=== PATIENT | female | born 1960 | race Caucasian/White ===

== ENCOUNTER → 2023-06-02 07:41 | Outpatient (REF) | payer BC, SELFPAY | LOC: HWRAD 07:41 | PROVIDERS: ATTENDING PHYSICIAN Specialist; FAMILY PHYSICIAN Internal Medicine | DX: N95.0 Postmenopausal bleeding (principal); N85.00 Endometrial hyperplasia, unspecified | CPT/HCPCS: 76830; 76856 ==

== ENCOUNTER → 2023-11-09 07:41 | Outpatient (REF) | payer BC, SELFPAY | LOC: HWRAD 07:41 | PROVIDERS: ATTENDING PHYSICIAN Specialist; FAMILY PHYSICIAN Internal Medicine | DX: N83.291 Other ovarian cyst, right side (principal) | CPT/HCPCS: 76830; 76856 ==

== ENCOUNTER → 2024-01-09 08:44 | Outpatient (REF) | payer BC, SELFPAY ==
[2024-01-09 10:07] LABS: Blood Urea Nitrogen 18 mg/dl (7-17); Carbon Dioxide 25 mmol/L (22-30); Chloride 106 mmol/L (98-107); Glucose 89 mg/dl (70-99); Potassium 4.4 mmol/L (3.5-5.1); Sodium 142 mmol/L (135-145); eGFR > 60.00
== END ==
LOC: REG 08:44
PROVIDERS: ATTENDING PHYSICIAN Obstetrics & Gynecology; FAMILY PHYSICIAN Internal Medicine
DX: D49.4 Neoplasm of unspecified behavior of bladder (principal)
CPT/HCPCS: 36415; 80048

== ENCOUNTER → 2024-01-15 08:20 | Outpatient (REF) | payer BC, SELFPAY | LOC: RAD 08:20 | PROVIDERS: ATTENDING PHYSICIAN Obstetrics & Gynecology; FAMILY PHYSICIAN Internal Medicine | DX: D49.4 Neoplasm of unspecified behavior of bladder (principal) | CPT/HCPCS: 74178; Q9967 ==

== ENCOUNTER → 2024-01-18 16:04 | Outpatient (REF) | payer BC, SELFPAY | LOC: WDC 16:04 | PROVIDERS: ATTENDING PHYSICIAN Specialist; FAMILY PHYSICIAN Internal Medicine | DX: Z12.31 Encounter for screening mammogram for malignant neoplasm of breast (principal) | CPT/HCPCS: 77063; 77067 ==

== ENCOUNTER → 2024-02-22 12:05 | Outpatient (REF) | payer BC, SELFPAY | LOC: CLAB 12:05 | PROVIDERS: ATTENDING PHYSICIAN Surgery | DX: D49.4 Neoplasm of unspecified behavior of bladder (principal) | CPT/HCPCS: 88112 ==

== ENCOUNTER → 2024-04-06 13:08 | Outpatient (REF) | payer BC, SELFPAY | LOC: PAVMRI 13:08 | PROVIDERS: ATTENDING PHYSICIAN Surgery; FAMILY PHYSICIAN Internal Medicine | DX: D49.4 Neoplasm of unspecified behavior of bladder (principal) | CPT/HCPCS: 72197; A9575 ==

== ENCOUNTER 2024-06-05 12:14 | Emergency (ER) | payer BC, SELFPAY ==
[2024-06-05 12:20] VITALS: BP 92/74
[2024-06-05 12:22] VITALS: BP 92/74
[2024-06-05 12:26] VITALS: BMI 36.4
--- NOTE | 2024-06-05 12:29 | ED.GENMED ---
History of Present Illness
General
Chief Complaint: Fainting/Passed Out
Source: patient and ambulance crew
Exam Limitations: none
Time Seen by Provider: 06/05/24 12:29
Nursing documentation reviewed up to this point in time: agreed with
History of Present Illness
History of Present Illness:
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 Bystanders saw her and she was only out for a few seconds. She did eat breakfast this morning.
Presents via EMS actively vomiting. She denies chest pain or breathing. She has 'a little sore' neck pain. She states she has a mild headache.
Past History
Past History
ED Past Medical History: Other (Fainting episodes); Negative Arrthythmia, HTN, Hypercholesterolemia or NIDDM
ED Past Surgical History: Cholecystectomy
Social History
Tobacco: Non-smoker
Alcohol: None
Personal:
Living: with family
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
Family History
Family History: Negative CAD
Review of Systems
Review of Systems
Allergies reviewed?: Yes
All Other Systems: ROS reviewed and negative except as documented in HPI and ROS
Constitutional: Denies fever or fatigue
EENT: Denies sore throat
Respiratory: Denies trouble breathing
Cardiac: Reports diaphoresis and syncope; Denies chest pain or palpitations
ABD/GI: Reports nausea and vomiting; Denies abdominal pain or diarrhea
: Denies dysuria, frequency or difficulty voiding
Musculoskeletal: Reports no symptoms
Skin: Reports no symptoms
Neurological: Reports no symptoms
Phy Exam
Physical Exam
Physical Exam:
GENERAL: Vomiting, A&Ox3.
CONSTITUTIONAL: Afebrile.
EYES: clear, conjunctivae normal
ENMT: moist mucus membranes, Pharynx nl
RESPIRATORY: Regular respirations, nonlabored, lungs clear.
CARDIOVASCULAR: Regular rate and rhythm, no murmurs, no rubs.
GI: Soft, nontender, normal BS
MUSCULOSKELETAL: Tender mid cervical spine. Moves with ease. Well perfused.
SKIN: Warm, dry, pink
PSYCH: Normal mood and affect. Well kept, interactive and appropriate
NEUROLOGIC: Awake, alert and oriented. CN 2-12 intact. No focal neurological deficits
Course
Orders/Labs/Results
Orders:
Orders
06/05/24 12:18
Electrocardiogram (*1) Urgent
Reason for Study: Syncope
06/05/24 12:19
EKG- Treatment ONCE
06/05/24 12:24
Complete Blood Count/With Diff Urgent
06/05/24 12:30
Ondansetron Injectable [Zofran] 4 mg .ROUTE .STK-MED ONE
Ondansetron Injectable [Zofran] 4 mg IV NOW STA
06/05/24 12:38
COVID-19 Antigen Urgent
Source: Nasal Swab
Comprehensive Metabolic Panel Urgent
Lipase Urgent
Comment: ADD ON
Influenza A+B Rapid Molecular Urgent
BRET Source: Nasal Swab
Specimen Description:
06/05/24 13:11
Add On- LAB Urgent
Tests Added?: Lipase
06/05/24 13:18
0.9% Sodium Chloride 250 ml [Nss] 250 ml IV BOLUS
06/05/24 13:22
CT Cervical Spine W/o Iv Contr Urgent
Comment:
Reason For Exam: pain mid cspine after fall
CT Head W/o Iv Contrast Urgent
Comment:
Reason For Exam: fall, struck back of head, vomiting
Abnormal Lab Results
06/05/24 06/05/24
12:24 12:38
MCH 31.3 H pg
(27.0-31.0)
Abs Immat Gran (auto) 0.1 H 10^3/uL
(0-0.05)
Absolute Monos (auto) 0.7 H 10^3/uL
(0.1-0.6)
Immature Gran % 0.6 H %
(0-0.5)
BUN 18 H mg/dl
(7-17)
Glucose 109 H mg/dl
(70-99)
06/05/24 12:24
06/05/24 12:38
Vital Signs
Initial and Last Documented VS:
Initial Vital Signs
Temp Pulse Resp BP Pulse Ox
97.9 F 58 24 92/74 100
06/05/24 12:20 06/05/24 12:20 06/05/24 12:20 06/05/24 12:20 06/05/24 12:20
Last Documented Vital Signs
Temp Pulse Resp BP Pulse Ox
97.9 F 58 18 150/88 90
06/05/24 12:20 06/05/24 17:10 06/05/24 17:10 06/05/24 17:10 06/05/24 14:00
MDM/Problems Addressed
Differential Diagnosis Includes:
Viral gastroenteritis, Covid, vasovagal episode
MDM/Problems Addressed:
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 She thinks she hit her head. Not anticoagulated. Bystanders saw her and she was only out for a few seconds.
She did eat breakfast this morning.
Presents via EMS actively vomiting. She denies chest pain or breathing. She has 'a little sore' neck pain. She states she has a mild headache. Denies numbness, weakness in extremities
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
EKG sinus bradycardia
No significant headache, neck non tender, no indication for imaging.
1:00 PM:
CBC normal
CMP normal
Covid neg
1:20 PM:
After Zofran, no longer vomiting. Still feels nauseous.
Will give IV fluids and reevaluate
In further conversation with the patient she states while she was standing, singing at [employer], with a history of 'bad knees,' she states her knees are very painful and 'really bothering me,' just prior to the fainting episode
This is consistent with vasovagal episode.
3:40 PM:
Head CT negative
C-spine CT negative
Patient has been out of bed and ambulating well, states she is feeling much better, denies nausea and has been drinking sofy pascual. Stable for discharge.
*EKG
EKG Intrepretation Date: 06/05/24
Interpretation: normal
Comparison EKG: no changes
Heart Rate: 54
Rate: bradycardiac
Rhythm: sinus
[place]: normal axis
Interval: normal interval
QRS Pattern: normal QRS
Ischemia: no ischemia
*Critical Care Note
Total Time (30-74mins, 75-104mins- exclusive of procedures): Not Applicable
ED Attending Note
-
Portions of this chart may have been created with voice recognition software.� Occasional wrong word or��sound alike� substitutions may have occurred due to the inherent limitations of voice recognition software.
Discharge Plan
Departure
Patient Disposition: Home (Routine Discharge)
Date of Disposition: 06/05/24
Time of Disposition: 15:59
Patient with high blood pressure during this ER visit?: No
Condition: Good
Discharge Problem:
Fainting spell, Vasovagal episode
Instructions: Syncope (fainting), Vasovagal Response (DC)
Prescriptions:
No Action
fluticasone propionate 1 SPRAY spray,suspension
2 spray intranasal DAILY Qty: 1 0RF
Rx Instructions:
2 sprays each nostril once daily
Centrum Silver Tablet
1 tab PO DAILY
Vitamin D3 100 mcg (4,000 unit) Capsule
1,000 unit PO DAILY
Referrals:
Donny Goncalves MD [Family Provider] - As needed
Activity Restrictions/Additional Instructions:
As we discussed, nothing worrisome in your workup here today.
You most likely had a vasovagal reaction to your knee pain and feeling hot.
Interventions
Interventions:
*Risk Screen - Suicide Last Done: 06/05/24 12:19
*General Assessment Last Done: 06/05/24 12:20
*Neglect/Abuse Screening Last Done: 06/05/24 12:19
ED- Fall Risk Assessment Last Done: 06/05/24 12:37
*ED COVID-19 Vaccine History Last Done: 06/05/24 12:20
*Nursing Disposition Last Done: 06/05/24 17:10
ED- Cardiac Assessment Last Done: 06/05/24 12:48
ED- Neurological Assessment Last Done: 06/05/24 12:48
Discharge Date and Time
Discharge Date/Time: 06/05/24 16:45
Print Language: BURKINAN
[2024-06-05 12:31] LABS: % Basophils 0.7 % (0-2); % Eosinophils 0.9 % (0-6); % Immature Granulocytes 0.6 % (0-0.5); % Lymphocytes 25.1 % (20.5-51.1); % Monocytes 8.3 % (1.7-9.3); % Neutrophils 64.4 % (42.2-75.2); Absolute Basophils 0.1 10^3/uL (0-0.2); Absolute Eosinophils 0.1 10^3/uL (0-0.7); Absolute Immature Granulocytes 0.1 10^3/uL (0-0.05); Absolute Lymphocytes 2.1 10^3/uL (1.2-3.4); Absolute Monocytes 0.7 10^3/uL (0.1-0.6); Absolute Neutrophils 5.3 10^3/uL (1.4-6.5); Hematocrit 38.8 % (37.0-47.0); Hemoglobin 13.2 g/dL (12.0-16.0); Mean Corpuscular Hgb 31.3 pg (27.0-31.0); Mean Corpuscular Volume 91.9 fL (81.0-99.0); Mean Platelet Volume 9.9 fL (7.4-10.4); Nucleated Red Blood Cells % 0 %; Platelet Count 262 10^3/uL (130-400); Red Blood Cell Count 4.22 10^6/uL (4.20-5.40); Red Cell Dist. Width 13.1 % (11.5-14.5); White Blood Cell Count 8.2 10^3/uL (4.8-10.8)
[2024-06-05] MEDS: ZOFRAN 4 MG IV (12:32)
[2024-06-05 13:01] VITALS: BP 152/67
[2024-06-05 13:04] LABS: ALT (SGPT) 34 U/L (0-35); AST (SGOT) 35 U/L (14-36); Albumin 4.1 g/dl (3.5-5.0); Alkaline Phosphatase 100 U/L (38-126); Blood Urea Nitrogen 18 mg/dl (7-17); COVID-19 Antigen Negative (Negative); Calcium 9.9 mg/dl (8.4-10.2); Carbon Dioxide 24 mmol/L (22-30); Chloride 106 mmol/L (98-107); Estimated Creatinine Clearance 85 ml/min; Glucose 109 mg/dl (70-99); Sodium 138 mmol/L (135-145); Total Protein 6.9 g/dl (6.3-8.2); eGFR > 60.00
[2024-06-05] MEDS: NSS 250 IV (13:31)
[2024-06-05 14:00] VITALS: BP 160/65
[2024-06-05 14:09] LABS: Lipase 71 U/L (23-300)
--- NOTE | 2024-06-05 17:09 | EDRN ---
Reviewed discharge instructions with pateint. Verbalized understanding. Ambulated with steady gait to the lobby.
[2024-06-05 17:10] VITALS: BP 150/88
== END 2024-06-05 16:45 | disposition home or self-care (01) ==
LOC: EMR 12:14
PROVIDERS: Registered Nurse; EMERGENCY PHYSICIAN Student in an Organized Health Care Education/Training Program; FAMILY PHYSICIAN Internal Medicine
DX: R55 Syncope and collapse (principal); Z90.49 Acquired absence of other specified parts of digestive tract
CPT/HCPCS: 99284; 96374; 70450; 72125; 80053; 83690; 85025; 87502; 87811; 93005

== ENCOUNTER → 2024-06-17 08:02 | Outpatient (REF) | payer BC, SELFPAY | LOC: HWRCS 08:02 | PROVIDERS: ATTENDING PHYSICIAN Internal Medicine | DX: R55 Syncope and collapse (principal) | CPT/HCPCS: 93306 ==

== ENCOUNTER → 2024-12-06 08:40 | Outpatient (REF) | payer BC, SELFPAY | LOC: HWRAD 08:40 | PROVIDERS: ATTENDING PHYSICIAN Internal Medicine | DX: R10.13 Epigastric pain (principal) | CPT/HCPCS: 76700 ==

== ENCOUNTER 2024-12-13 11:47 | Emergency (ER) | payer BC, SELFPAY ==
[2024-12-13 11:50] VITALS: BP 202/111
[2024-12-13 12:06] VITALS: BP 178/79
--- NOTE | 2024-12-13 12:20 | ED.GENMED ---
History of Present Illness
General
Chief Complaint: Blood Pressure Problem
Time Seen by Provider: 12/13/24 12:07
History of Present Illness
History of Present Illness:
PAST MEDICAL HISTORY AND REVIEW OF OLD RECORDS
- No significant past medical history. I reviewed records, the patient had a syncopal event this past May and at that time had a negative brain CT. More recently, she has been having some abdominal/chest discomfort and upper abdominal
ultrasound was unremarkable (status post cholecystectomy).
Note:
CHIEF COMPLAINT(S)
Ear pain, blurred vision, headache, high blood pressure.
HISTORY OF PRESENT ILLNESS
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 She describes the pain as severe, which prompted her visit to the emergency room after a consultation with her primary
care provider yielded no resolution. The patient also reports experiencing blurred vision and a severe headache upon waking. She relates a sensation of pressure in her ear, but an examination by her primary care physician noted no otologic
abnormalities. The patient also notes a history of neck pain for the last two to three days, which she describes as intermittent and muscular in nature, but has worsened recently.
She has a history of elevated blood pressure readings and mentions a blood pressure of 178/79 on this presentation. Previous medical evaluation explored conditions like pancreatitis or a peptic ulcer, for which she had been prescribed pantoprazole.
She denies any weakness or speech changes. The patient does report a history of blurred vision since experiencing a fall in May of the same year, during which she hit her head. Since that fall, she has had persistent visual disturbances.
PAST MEDICAL AND SURIGICAL HISTORY
Intermittent elevated blood pressure.
Recent evaluation for pancreatitis versus peptic ulcer.
SOCIAL DETERMINANTS AFFECTING HEALTH
According to the patient, there is a history of elevated blood pressure readings with occasional home monitoring also revealing high levels.
PHYSICAL EXAM
General: Alert, no acute distress.
Skin: Warm, dry.
Head: Normocephalic, atraumatic.
Neck: Supple, tender on palpation, trachea midline.
Eye, ears, nose, mouth, and throat: Oral mucosa moist. Visual acuity approximately 20/30 in each eye with mild interocular discrepancy; right eye noted as weaker. Tympanic membrane with normal reflex, no acute abnormalities visible.
Cardiovascular: Elevated blood pressure noted; normal peripheral perfusion, no edema.
Respiratory: Respirations are non-labored. Breath sounds clear.
Gastrointestinal: Abdomen nondistended. Nontender.
Back: Normal range of motion, normal alignment.
Musculoskeletal: Normal ROM, normal strength; noted tenderness at trapezius muscle area.
Neurological: Alert and oriented to person, place, time, and situation, No focal neurological deficit observed.
Psychiatric: Cooperative, appropriate mood & affect.
PROBLEM LIST
Acute Problems:
- Ear pain
- Blurred vision
- Severe headache
- Neck pain
- Elevated blood pressure
PLAN
- Administer a dose of Losartan to address acute hypertension.
- Perform blood work to evaluate biochemical markers.
- Conduct a CT scan of the brain to rule out any acute intracranial pathologies.
- Reevaluate and address the need for long-term blood pressure management based on todays findings and past readings.
DIFFERENTIAL DIAGNOSIS
The Differential Diagnosis includes, in no particular order and is not limited to:
- Hypertension
- Migraine headache
- Tension-type headache
- Cervical spine disorder
- Labyrinthitis
- Transient ischemic attack
- Intracranial hemorrhage or ischemic stroke
- Acute glaucoma
- Sinusitis
- Giant cell arteritis
RADIOLOGY
- CT head obtained.
EKG
- Sinus 68, nonspecific ST abnormality, no significant change from 06/05/2024
LABS
- CBC unremarkable, chemistries and troponin unremarkable
UPDATE
- The patient has a normal neurologic examination with NIHSS equals 0. She primarily complains of pain at the right ear but is also been having some discomfort in the left trapezius region and last week had some chest discomfort.
SUMMARY OF ENCOUNTER
The patient, a 64-year-old female, presented to the emergency department with complaints of ear pain, blurred vision, severe headache, and elevated blood pressure. The patients blood pressure was significantly high, and she was already experiencing
ongoing visual disturbances since a head injury earlier this year. In response to her elevated blood pressure, a dose of Losartan was administered to manage hypertension. A CT scan was performed to rule out intracranial pathologies, and the results
showed no alarming intracranial issues. Cardiac blood work, basic chemistry tests, and a complete blood count were conducted, all of which returned normal results. The decision was made to prescribe Losartan 50 mg daily to manage ongoing
hypertension. Official readings from the CT scan were awaited, but preliminary interpretation revealed no signs of a heart attack or major bleeding.
DISPOSITION
Discharge.
ASSESSMENT
The patient presented with symptoms likely linked to elevated blood pressure and possibly a cervical spine disorder. Blurred vision and headaches could relate to both her elevated blood pressure and potential residual effects from her past head
injury.
EMERGENCY TREATMENTS ADMINISTERED
Losartan was administered in the emergency department to manage acute hypertension.
PLAN
Administer Losartan 50 mg daily for blood pressure management. Await official CT scan reading to confirm no acute intracranial pathologies. Discharge with follow-up instructions for primary care or specialist consultation if necessary.
INDEPENDENT REVIEW OF LABS AND INTERPRETATION OF TESTS
- My independent review of the cardiac and chemistry blood work indicates all results were normal and do not suggest acute cardiac events.
- My independent interpretation of the CT scan shows no signs of bleeding or acute intracranial pathology.
PATIENT EDUCATION AND COUNSELING
The patient was educated on the importance of managing her blood pressure to reduce the risk of headaches and possible blurred vision. She was also advised that the official CT scan report is pending but preliminary findings are reassuring.
FOLLOW-UP INSTRUCTIONS
Please contact your primary care provider for ongoing management of hypertension and further investigation of symptoms, including a possible referral to a specialist for persistent symptoms.
MEDICATION RECONCILIATION
- Losartan 50 mg daily was prescribed for hypertension management.
MEDICAL DECISION MAKING
- Number and Complexity of Problems Addressed: Chronic conditions affecting care include hypertension and possible residual effects from a prior head trauma. Differential diagnosis includes hypertension, migraine headache, tension-type headache,
cervical spine disorder, labyrinthitis, transient ischemic attack, intracranial hemorrhage or ischemic stroke, acute glaucoma, sinusitis, and giant cell arteritis.
- Data:
Category 1:
- Basic chemistry tests, complete blood count, and cardiac blood work reviewed, with normal results.
- My independent CT scan interpretation shows no acute intracranial issues.
Category 3:
- Await consultation of radiologists official read on CT scan to confirm preliminary findings.
- Risk: Consideration of Admission/Observation: Escalation of care including admission/observation was considered given the complexity and risk of the patients presenting complaint, exam findings, and underlying comorbidities. However, ultimately, I
feel the patient is safe for outpatient management with close follow-up. Reasoning: Work-up is reassuring, does not reveal any acute life/organ-threatening processes, patients symptoms well controlled upon reevaluation, reexamination is reassuring,
vitals are stable, patient agreeable with discharge, reliable for follow-up.
DIAGNOSIS
- Hypertension (I10)
- Headache, unspecified (R51)
- Blurred vision (H53.8)
- Right ear pain
Past History
Past History
ED Past Medical History: Other (Fainting episodes); Negative Arrthythmia, HTN, Hypercholesterolemia or NIDDM
ED Past Surgical History: Cholecystectomy
Social History
Tobacco: Non-smoker
Alcohol: None
Personal:
Living: with family
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
Family History
Family History: Negative CAD
Phy Exam
Physical Exam
Physical Exam:
See HPI
Course
Orders/Labs/Results
Orders:
Orders
12/13/24 11:55
EKG [Electrocardiogram (*1)] Urgent
Reason for Study: Hypertension, Benign
EKG- Treatment ONCE
12/13/24 12:15
CT Head W/o Iv Contrast Urgent
Comment:
Reason For Exam: hypertensive urgency, vision change, RIOS
12/13/24 12:19
Losartan [Cozaar] 50 mg PO NOW STA
12/13/24 12:41
Complete Blood Count/With Diff Urgent
Comprehensive Metabolic Panel Urgent
Troponin I Urgent
Abnormal Lab Results
12/13/24
12:41
MCH 31.6 H pg
(27.0-31.0)
Absolute Monos (auto) 0.7 H 10^3/uL
(0.1-0.6)
Glucose 102 H mg/dl
(70-99)
AST 56 H U/L
(14-36)
ALT 73 H U/L
(0-35)
12/13/24 12:41
12/13/24 12:41
Vital Signs
Blood pressure: 176/88
Initial and Last Documented VS:
Initial Vital Signs
Temp Pulse Resp BP Pulse Ox
36.7 C 70 20 202/111 100
12/13/24 11:50 12/13/24 11:50 12/13/24 11:50 12/13/24 11:50 12/13/24 11:50
Last Documented Vital Signs
Temp Pulse Resp BP Pulse Ox
36.7 C 58 15 144/74 97
12/13/24 11:50 12/13/24 14:30 12/13/24 14:30 12/13/24 14:25 12/13/24 14:30
*Pulse Oximetry
SaO2: 100
Oxygen Mode of Delivery: Room air
Patient hypoxic: no
*Critical Care Note
Total Time (30-74mins, 75-104mins- exclusive of procedures): Not Applicable
ED Attending Note
-
Portions of this chart may have been created with voice recognition software.� Occasional wrong word or��sound alike� substitutions may have occurred due to the inherent limitations of voice recognition software.
Discharge Plan
Departure
Patient Disposition: Home (Routine Discharge)
Date of Disposition: 12/13/24
Time of Disposition: 14:08
Patient with high blood pressure during this ER visit?: Yes
Discharge Problem:
High blood pressure
Instructions: High Blood Pressure (DC), BLOOD PRESSURE
Prescriptions:
New
losartan 50 mg tablet
50 mg PO DAILY Qty: 30 0RF
No Action
fluticasone propionate 1 SPRAY spray,suspension
2 spray intranasal DAILY Qty: 1 0RF
Rx Instructions:
2 sprays each nostril once daily
Centrum Silver Tablet
1 tab PO DAILY
Vitamin D3 100 mcg (4,000 unit) Capsule
1,000 unit PO DAILY
Referrals:
Donny Goncalves MD [Family Provider, Internal Medicine]
Activity Restrictions/Additional Instructions:
I sent a prescription for losartan to your pharmacy. Follow with your primary care doctor. Basic blood work including cardiac blood work and EKG are unremarkable. Return here if worse or other concerns
Interventions
Interventions:
*Risk Screen - Suicide Last Done: 12/13/24 11:50
*General Assessment Last Done: 12/13/24 11:50
*Neglect/Abuse Screening Last Done: 12/13/24 11:50
*ED- Fall Risk Assessment Last Done: 12/13/24 11:50
*ED COVID-19 Vaccine History Last Done: 12/13/24 11:50
*Nursing Disposition Last Done: 12/13/24 14:50
ED- Cardiac Assessment Last Done: 12/13/24 13:24
ED- Neurological Assessment Last Done: 12/13/24 13:14
ED- Pulmonary Assessment Last Done: 12/13/24 13:00
Discharge Date and Time
Discharge Date/Time: 12/13/24 14:51
Print Language: YORUBA
[2024-12-13] MEDS: COZAAR 50 MG PO (12:43)
[2024-12-13 12:48] LABS: Hematocrit 40.9 % (37.0-47.0); Hemoglobin 14.0 g/dL (12.0-16.0); Mean Corp Hgb Conc. 34.2 g/dL (33.0-37.0); Mean Corpuscular Volume 92.3 fL (81.0-99.0); Nucleated Red Blood Cells % 0 %; Platelet Count 284 10^3/uL (130-400); Red Cell Dist. Width 12.9 % (11.5-14.5)
[2024-12-13 13:13] LABS: Troponin I < 0.012 ng/ml
[2024-12-13 13:14] LABS: ALT (SGPT) 73 U/L (0-35); AST (SGOT) 56 U/L (14-36); Albumin 4.9 g/dl (3.5-5.0); Alkaline Phosphatase 96 U/L (38-126); Blood Urea Nitrogen 10 mg/dl (7-17); Calcium 9.7 mg/dl (8.4-10.2); Carbon Dioxide 23 mmol/L (22-30); Chloride 107 mmol/L (98-107); Glucose 102 mg/dl (70-99); Potassium 4.0 mmol/L (3.5-5.1); Sodium 139 mmol/L (135-145); Total Protein 7.9 g/dl (6.3-8.2); eGFR > 60.00
[2024-12-13 13:21] VITALS: BP 157/67
[2024-12-13 13:22] VITALS: BMI 34.5
[2024-12-13 13:23] VITALS: BP 157/67
[2024-12-13 13:43] VITALS: BP 167/64
[2024-12-13 14:25] VITALS: BP 144/74
== END 2024-12-13 14:51 | disposition home or self-care (01) ==
LOC: EMR 11:47
PROVIDERS: EMERGENCY PHYSICIAN Emergency Medicine; FAMILY PHYSICIAN Internal Medicine
DX: I10 Essential (primary) hypertension (principal)
CPT/HCPCS: 99284; 70450; 80053; 84484; 85025; 93005

== ENCOUNTER 2024-12-15 16:09 | Emergency (ER) | payer BC, SELFPAY ==
[2024-12-15] VITALS (7 sets, daily range): BP systolic 140–164; BP diastolic 61–86; BMI 34.6
[2024-12-15 16:27] LABS: Hematocrit 40.0 % (37.0-47.0); Hemoglobin 13.7 g/dL (12.0-16.0); Mean Corp Hgb Conc. 34.3 g/dL (33.0-37.0); Mean Corpuscular Volume 92.0 fL (81.0-99.0); Nucleated Red Blood Cells % 0 %; Platelet Count 279 10^3/uL (130-400); Red Cell Dist. Width 13.0 % (11.5-14.5)
--- NOTE | 2024-12-15 16:58 | ED.GENMED ---
History of Present Illness
<TOAN Sanon - Last Filed: 12/16/24 15:18>
General
Chief Complaint: Chest Pain
Source: patient
Exam Limitations: none
Time Seen by Provider: 12/15/24 16:48
Nursing documentation reviewed up to this point in time: agreed with
History of Present Illness
History of Present Illness:
Patient is a 64-year-old female past medical history of hypertension presents to the ER for evaluation. She reports that since Thursday for the past 4 days her ' head has felt off.' She has had some intermittent pressure in her ear. She denies any
associated dizziness or vertigo. No recent trauma or chiropractic manipulation. She has had some pain in the middle of her back recently but denies any injury. She denies any shortness of breath
On Thursday she saw her family doctor and her blood pressure was found to be elevated and she was sent here to the ER and placed on losartan. She has been taking losartan since.
Today around 3 PM her head fell off again and then she noticed pain to the back of the neck which she reports shot to her left shoulder. She also reports she had chest pressure when this occurred. EMS was called and they did give her aspirin and
2 nitroglycerin. She does report the chest pressure is improved but still mildly there. She developed a headache after receiving the nitroglycerin.
Past History
<TOAN Sanon - Last Filed: 12/16/24 15:18>
Past History
ED Past Medical History: Other (Fainting episodes); Negative Arrthythmia, HTN, Hypercholesterolemia or NIDDM
ED Past Surgical History: Cholecystectomy
Social History
Tobacco: Non-smoker
Alcohol: None
Personal:
Living: with family
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)
Family History
Family History: Negative CAD
Phy Exam
<TOAN Sanon - Last Filed: 12/16/24 15:18>
General Physical Exam
General Presentation: no apparent distress
General age: appears stated age
General Skin: warm and dry
General Habitus: normal
General Mental: alert
General Hydration: appears well hydrated
Cardiovascular Exam
Cardiovascular Exam: regular rate/rhythm, no murmur and normal peripheral pulses
Pulmonary Exam
Pulmonary Exam: lungs clear and no respiratory distress
Neurological Exam
Neurological Exam: alert and oriented x3
Musculoskeletal Exam
Musculoskeletal Exam: full ROM
Skin Exam
Skin Exam: normal color and warm/dry
Psychiatric Exam
Psychiatric Exam: normal mood/affect
Scores
<TOAN Sanon - Last Filed: 12/16/24 15:18>
Heart Score for Chest Pain Patients
STEMI patient?: Not applicable
Course
<TOAN Sanon - Last Filed: 12/16/24 15:18>
Orders/Labs/Results
Orders:
Orders
12/15/24 16:10
Electrocardiogram (*1) Urgent
Reason for Study: Chest Pain
EKG- Treatment ONCE
12/15/24 16:17
Complete Blood Count/With Diff Urgent
Troponin I Urgent
12/15/24 16:32
CXR2 [CR Chest - 2 Views ] Urgent
Comment:
Reason For Exam: cp
12/15/24 17:21
DDimer [D-Dimer] Urgent
12/15/24 18:18
CT Head & Neck Angio W/wo IV Urgent
Comment:
Reason For Exam: dizzy neck pain /headache
12/15/24 18:19
CT Chest PE Study Urgent
Comment:
Reason For Exam: cp/elevated d dimer
12/15/24 18:29
Comprehensive Metabolic Panel Urgent
12/15/24 19:56
Electrocardiogram (*1) Urgent
Reason for Study: Chest Pain
EKG- Treatment ONCE
12/15/24 20:20
Famotidine [Pepcid] 20 mg IV NOW STA
Mag Hydrox/Al Hydrox/Simeth [Maalox] 30 ml Phenobarb/Hyoscy/Atropine/Scop [] 10 ml PO NOW
12/15/24 20:29
Troponin I Urgent
12/15/24 20:31
Mag Hydrox/Al Hydrox/Simeth [Maalox] 30 ml .ROUTE .STK-MED ONE
Phenobarb/Hyoscy/Atropine/Scop [] 10 ml .ROUTE .STK-MED ONE
Abnormal Lab Results
12/15/24 12/15/24 12/15/24
16:17 17:21 18:29
MCH 31.5 H pg
(27.0-31.0)
Absolute Neuts (auto) 6.7 H 10^3/uL
(1.4-6.5)
Absolute Monos (auto) 0.7 H 10^3/uL
(0.1-0.6)
D-Dimer 0.66 H ug/mlFEU
(0.00-0.50)
Glucose 111 H mg/dl
(70-99)
Total Bilirubin 1.4 H mg/dl
(0.2-1.3)
AST 48 H U/L
(14-36)
ALT 117 H U/L
(0-35)
12/15/24 16:17
12/15/24 18:29
Vital Signs
Initial and Last Documented VS:
Initial Vital Signs
Pulse Resp Pulse Ox
87 22 99
12/15/24 16:12 12/15/24 16:12 12/15/24 16:12
Last Documented Vital Signs
Temp Pulse Resp BP Pulse Ox
98.9 F 61 16 163/75 100
12/15/24 16:14 12/15/24 22:00 12/15/24 22:00 12/15/24 22:00 12/15/24 22:00
Shell Fisherman consulted with Physician
Shell Fisherman consulted with physician?: Yes (Honorio )
<Jovani Tripp Honorio, DO - Last Filed: 12/15/24 22:04>
Orders/Labs/Results
Orders:
Orders
12/15/24 16:10
Electrocardiogram (*1) Urgent
Reason for Study: Chest Pain
EKG- Treatment ONCE
12/15/24 16:17
Complete Blood Count/With Diff Urgent
Troponin I Urgent
12/15/24 16:32
CXR2 [CR Chest - 2 Views ] Urgent
Comment:
Reason For Exam: cp
12/15/24 17:21
DDimer [D-Dimer] Urgent
12/15/24 18:18
CT Head & Neck Angio W/wo IV Urgent
Comment:
Reason For Exam: dizzy neck pain /headache
12/15/24 18:19
CT Chest PE Study Urgent
Comment:
Reason For Exam: cp/elevated d dimer
12/15/24 18:29
Comprehensive Metabolic Panel Urgent
12/15/24 19:56
Electrocardiogram (*1) Urgent
Reason for Study: Chest Pain
EKG- Treatment ONCE
12/15/24 20:20
Famotidine [Pepcid] 20 mg IV NOW STA
Mag Hydrox/Al Hydrox/Simeth [Maalox] 30 ml Phenobarb/Hyoscy/Atropine/Scop [] 10 ml PO NOW
12/15/24 20:29
Troponin I Urgent
12/15/24 20:31
Mag Hydrox/Al Hydrox/Simeth [Maalox] 30 ml .ROUTE .STK-MED ONE
Phenobarb/Hyoscy/Atropine/Scop [] 10 ml .ROUTE .STK-MED ONE
Abnormal Lab Results
12/15/24 12/15/24 12/15/24
16:17 17:21 18:29
MCH 31.5 H pg
(27.0-31.0)
Absolute Neuts (auto) 6.7 H 10^3/uL
(1.4-6.5)
Absolute Monos (auto) 0.7 H 10^3/uL
(0.1-0.6)
D-Dimer 0.66 H ug/mlFEU
(0.00-0.50)
Glucose 111 H mg/dl
(70-99)
Total Bilirubin 1.4 H mg/dl
(0.2-1.3)
AST 48 H U/L
(14-36)
ALT 117 H U/L
(0-35)
12/15/24 16:17
12/15/24 18:29
Vital Signs
Initial and Last Documented VS:
Initial Vital Signs
Pulse Resp Pulse Ox
87 22 99
12/15/24 16:12 12/15/24 16:12 12/15/24 16:12
Last Documented Vital Signs
Temp Pulse Resp BP Pulse Ox
98.9 F 61 16 163/75 100
12/15/24 16:14 12/15/24 22:00 12/15/24 22:00 12/15/24 22:00 12/15/24 22:00
<TOAN Sanon - Last Filed: 12/16/24 15:18>
MDM/Problems Addressed
MDM/Problems Addressed:
As documented patient is a 64-year-old female who presented to the ER for evaluation. Patient has felt ' off' for the past several days in her head. She reports that however today she had pain in the back of her neck that went to her left
shoulder and described pressure in her chest. She has no cardiac disease. No recent trauma or chiropractic manipulation patient did receive nitroglycerin prior to arrival which did seem to ease her symptoms she does report slight headache from
this. Patient presents awake alert no acute distress no complaints of chest pain or shortness of breath.
With vague symptoms and neck pain along with chest discomfort and back pain CTA angio head and neck along with PE study were done and both she had no acute were negative. Findings on EKG and initial troponin was negative. Second troponin pending
at this time. On reexam patient complains of mild heartburn will give GI cocktail and Pepcid. LFTs are minimally elevated I did review this with patient and discussed close outpatient follow-up will place on the chest pain hotline and plan for
discharge if repeat troponin negative.
<TOAN Sanon - Last Filed: 12/16/24 15:18>
*Radiology
Radiology exam reviewed: radiology read reviewed
*Pulse Oximetry
SaO2: 100
Oxygen Mode of Delivery: Room air
Patient hypoxic: no
*EKG
Heart Rate: 62
Rate: normal
Rhythm: sinus
Ischemia: other (2nd repeat ekg : unchanged )
*Critical Care Note
Total Time (30-74mins, 75-104mins- exclusive of procedures): Not Applicable
Data Reviewed
Review of Other/Old Records Reveals: Other (previous ED visit )
Source: patient and family
ED Attending Note
<TOAN Sanon - Last Filed: 12/16/24 15:18>
-
Portions of this chart may have been created with voice recognition software.� Occasional wrong word or��sound alike� substitutions may have occurred due to the inherent limitations of voice recognition software.
<Jovani Olmedo DO - Last Filed: 12/15/24 22:04>
ED Attending Note
Patient seen and examined by attending physician: Yes
I performed the substantive portion of visit, reviewed & personally made and approve the management plan that is documented in note by myself or GAYLA.: Yes
ED Attending Note:
I evaluated the patient at bedside. The patient had a CTA of the head and neck which was unremarkable. CTA of the chest shows no PE. She had 2 troponins that were negative. EKG sinus 61, normal axis, no acute ST abnormality. The patient does
have ongoing high blood pressure readings at home�you may increase her dosing to 100 mg daily.
Discharge Plan
Departure
Patient Disposition: Home (Routine Discharge)
Date of Disposition: 12/15/24
Time of Disposition: 22:04
Patient with high blood pressure during this ER visit?: Yes
Condition: Fair
Covid-19: Not Applicable
Discharge Problem:
Chest pain
Instructions: Chest Pain DCA Follow Up, BLOOD PRESSURE
Prescriptions:
No Action
fluticasone propionate 1 SPRAY spray,suspension
2 spray intranasal DAILY Qty: 1 0RF
Rx Instructions:
2 sprays each nostril once daily
Centrum Silver Tablet
1 tab PO DAILY
Vitamin D3 100 mcg (4,000 unit) Capsule
1,000 unit PO DAILY
losartan 50 mg tablet
50 mg PO DAILY Qty: 30 0RF
Referrals:
Farhan Lew MD [Active, Cardiology]
NONE,* [Active, Internal Medicine]
Activity Restrictions/Additional Instructions:
Continue to take your losartan. Please follow-up with cardiology. You were placed on the chest pain hotline.
You should receive a phone call from cardiology in the next several days however if you do not please give the office a call to schedule an appointment as soon as possible.
Also as discussed your liver functions are mildly elevated and will need to be reevaluated by your family doctor
Interventions
Interventions:
*Risk Screen - Suicide Last Done: 12/15/24 16:27
*General Assessment Last Done: 12/15/24 16:27
*Neglect/Abuse Screening Last Done: 12/15/24 16:27
*ED- Fall Risk Assessment Last Done: 12/15/24 16:27
*ED COVID-19 Vaccine History Last Done: 12/15/24 16:27
*Nursing Disposition Last Done: 12/15/24 22:13
ED- Cardiac Assessment Last Done: 12/15/24 16:29
Discharge Date and Time
Discharge Date/Time: 12/15/24 22:15
Print Language: ALBANIAN
[2024-12-15 17:07] LABS: Troponin I < 0.012 ng/ml
[2024-12-15 17:45] LABS: D-Dimer 0.66 ug/mlFEU (0.00-0.50)
[2024-12-15 18:59] LABS: ALT (SGPT) 117 U/L (0-35); AST (SGOT) 48 U/L (14-36); Albumin 4.7 g/dl (3.5-5.0); Alkaline Phosphatase 104 U/L (38-126); Blood Urea Nitrogen 12 mg/dl (7-17); Calcium 10.2 mg/dl (8.4-10.2); Carbon Dioxide 25 mmol/L (22-30); Chloride 106 mmol/L (98-107); Estimated Creatinine Clearance 92 ml/min; Potassium 4.3 mmol/L (3.5-5.1); Sodium 140 mmol/L (135-145); Total Protein 7.6 g/dl (6.3-8.2); eGFR > 60.00
[2024-12-15 19:07] LABS: Glucose 111 mg/dl (70-99)
[2024-12-15] MEDS: MAALOX 40 PO (20:34)
[2024-12-15] MEDS: PEPCID 20 MG IV (20:36)
[2024-12-15 21:22] LABS: Troponin I < 0.012 ng/ml
== END 2024-12-15 22:15 | disposition home or self-care (01) ==
LOC: EMR 16:09
PROVIDERS: Emergency Medicine; Nurse Practitioner; EMERGENCY PHYSICIAN Emergency Medicine; FAMILY PHYSICIAN Internal Medicine
DX: R07.89 Other chest pain (principal); I10 Essential (primary) hypertension; M54.2 Cervicalgia; M25.512 Pain in left shoulder; Z90.49 Acquired absence of other specified parts of digestive tract; Z79.899 Other long term (current) drug therapy
CPT/HCPCS: 99285; 96374; 70496; 70498; 71046; 71275; 80053; 84484; 85025; 85379; 93005; Q9967

== ENCOUNTER 2024-12-29 06:20 | Day surgery (SDC) | payer BC, SELFPAY | END 2024-12-29 11:56 | disposition home or self-care (01) | LOC: GI 06:20 | PROVIDERS: ATTENDING PHYSICIAN Internal Medicine Gastroenterology | DX: R12 Heartburn (principal); K31.7 Polyp of stomach and duodenum | CPT/HCPCS: 43239; 88305; 88342 ==

== ENCOUNTER → 2025-01-13 08:16 | Outpatient (REF) | payer BC, SELFPAY | LOC: RCS 08:16 | PROVIDERS: ATTENDING PHYSICIAN Internal Medicine Cardiovascular Disease; FAMILY PHYSICIAN Internal Medicine | DX: R07.89 Other chest pain (principal) | CPT/HCPCS: 93017; 93350 ==

== ENCOUNTER → 2025-01-18 16:13 | Outpatient (REF) | payer BC, SELFPAY | LOC: WDC 16:13 | PROVIDERS: ATTENDING PHYSICIAN Specialist; FAMILY PHYSICIAN Internal Medicine | DX: Z12.31 Encounter for screening mammogram for malignant neoplasm of breast (principal) | CPT/HCPCS: 77063; 77067 ==

== ENCOUNTER 2025-03-22 19:22 | Observation (INO) | payer BC, SELFPAY ==
[2025-03-22] VITALS (18 sets, daily range): BP systolic 125–188; BP diastolic 51–103; BMI 32.7; BMI 32.9
[2025-03-22 12:11] LABS: Hematocrit 43.8 % (37.0-47.0); Hemoglobin 14.2 g/dL (12.0-16.0); Mean Corp Hgb Conc. 32.4 g/dL (33.0-37.0); Mean Corpuscular Volume 95.4 fL (81.0-99.0); Nucleated Red Blood Cells % 0 %; Platelet Count 308 10^3/uL (130-400); Red Cell Dist. Width 13.0 % (11.5-14.5)
[2025-03-22 12:23] LABS: ALT (SGPT) 50 U/L (0-35); AST (SGOT) 40 U/L (14-36); Albumin 4.8 g/dl (3.5-5.0); Alkaline Phosphatase 86 U/L (38-126); Blood Urea Nitrogen 13 mg/dl (7-17); Calcium 9.6 mg/dl (8.4-10.2); Carbon Dioxide 28 mmol/L (22-30); Chloride 101 mmol/L (98-107); Glucose 102 mg/dl (70-99); Potassium 4.2 mmol/L (3.5-5.1); Sodium 136 mmol/L (135-145); Total Protein 7.8 g/dl (6.3-8.2); eGFR > 60.00
[2025-03-22 14:37] LABS: Troponin I < 0.012 ng/ml
[2025-03-22] MEDS: REGLAN 10 MG IV (15:12)
--- NOTE | 2025-03-22 18:30 | ED.GENMED ---
History of Present Illness
General
Chief Complaint: Blood Pressure Problem
Source: patient
Exam Limitations: none
Time Seen by Provider: 03/22/25 13:14
Nursing documentation reviewed up to this point in time: agreed with
History of Present Illness
History of Present Illness:
64-year-old female past ministry of hypertension presenting to the emergency department today with concerns of headache chest pain and paresthesias to left side of her face arm and leg starting this morning. Has been somewhat improving since onset
which was 5 hours prior to arrival to the emergency department. Blood pressure has been elevated as well today. She denies similar symptoms in the past. Denies any history of migraines.
Past History
Past History
ED Past Medical History: Other (Fainting episodes); Negative Arrthythmia, HTN, Hypercholesterolemia or NIDDM
ED Past Surgical History: Cholecystectomy
Social History
Tobacco: Non-smoker
Alcohol: None
Personal:
Living: with family
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
Family History
Family History: Negative CAD
Review of Systems
Review of Systems
Allergies reviewed?: Yes
All Other Systems: ROS reviewed and negative except as documented in HPI and ROS
Phy Exam
Physical Exam
Physical Exam:
GENERAL: Alert , in no apparent distress
EYE: pupils equal and reactive
NECK: Supple, no significant adenopathy.
ENT: o/p clr, mmm.
CARDIAC: Regular rate and rhythm .
LUNGS: Clear breath sounds bilaterally, no acute respiratory distress, no wheezes/rales/rhonchi
ABDOMEN: Soft, without focal tenderness, no r/g, no cvat
NEUROLOGICAL: Alert and oriented,
SKIN: Warm and dry, skin intact.
MUSCULOSKELETAL: No edema, well perfused.
PSYCH: Normal and appropriate interaction.
Patient claims to have slight decrease sensation to left side of her face left arm and left leg no objective findings were on the remainder of the neurologic evaluation.
Course
Orders/Labs/Results
Orders:
Orders
03/22/25 11:57
EKG [Electrocardiogram (*1)] Urgent
Reason for Study: Hypertension, Benign
EKG- Treatment ONCE
03/22/25 12:01
CBC/With Diff [Complete Blood Count/With Diff] Urgent
CMP [Comprehensive Metabolic Panel] Urgent
03/22/25 13:47
CT Head & Neck Angio W/wo IV Urgent
Comment:
Reason For Exam: neck pain, paresthesia to left arm face/leg 8:30a
03/22/25 13:54
Troponin I Urgent
03/22/25 15:09
Metoclopramide [Reglan] 10 mg IV NOW STA
03/22/25 18:32
MRI Brain [MR Brain Without Contrast] Urgent
Comment:
Reason For Exam: left sided paresthesia
Recent pill cam endoscopy?: No
Aspirin 325 mg PO NOW STA
Clopidogrel Bisulfate [Plavix] 300 mg PO NOW STA
Abnormal Lab Results
03/22/25
12:01
MCHC 32.4 L g/dL
(33.0-37.0)
Abs Immat Gran (auto) 0.1 H 10^3/uL
(0-0.05)
Absolute Neuts (auto) 7.4 H 10^3/uL
(1.4-6.5)
Absolute Monos (auto) 0.7 H 10^3/uL
(0.1-0.6)
Neutrophils % 76.0 H %
(42.2-75.2)
Lymphocytes % 15.9 L %
(20.5-51.1)
Glucose 102 H mg/dl
(70-99)
Total Bilirubin 1.5 H mg/dl
(0.2-1.3)
AST 40 H U/L
(14-36)
ALT 50 H U/L
(0-35)
03/22/25 12:01
03/22/25 12:01
Vital Signs
Initial and Last Documented VS:
Initial Vital Signs
Temp Pulse Resp BP Pulse Ox
98.3 F 79 15 188/97 98
03/22/25 11:54 03/22/25 11:54 03/22/25 11:54 03/22/25 11:54 03/22/25 11:54
Last Documented Vital Signs
Temp Pulse Resp BP Pulse Ox
98.3 F 56 17 163/70 99
03/22/25 11:54 03/22/25 18:00 03/22/25 18:00 03/22/25 18:00 03/22/25 18:30
MDM/Problems Addressed
MDM/Problems Addressed:
64-year-old female with concerns of a vague headache mainly the left side of her head as well as some vague left-sided chest pressure without radiation no shortness of breath as well as a paresthesia to the left face left arm and left leg ongoing
over the past 5 hours prior to arrival. On arrival EKG without emergent findings neurologic evaluation with subjective paresthesias but no objective findings. Blood pressure initially elevated but improving without specific treatment. CT
angiogram without emergent findings. Troponin negative. Case discussed with neuro recommending MRI. Patient was started on dual antiplatelet therapy.
*Pulse Oximetry
SaO2: 99
Oxygen Mode of Delivery: Room air
Patient hypoxic: no (99)
*Critical Care Note
Total Time (30-74mins, 75-104mins- exclusive of procedures): Not Applicable
ED Attending Note
-
Portions of this chart may have been created with voice recognition software.� Occasional wrong word or��sound alike� substitutions may have occurred due to the inherent limitations of voice recognition software.
Discharge Plan
Departure
Patient Disposition: Admit
Date of Disposition: 03/22/25
Time of Disposition: 18:53
Admit to: Telemetry
Admit to doctor: Raffaele
Presentation/result/management discussed w/ accepting MD/DO: Hospitalist
Patient with high blood pressure during this ER visit?: No
Condition: Good
Covid-19: Not Applicable
Discharge Problem:
Paresthesia, Headache, High blood pressure
Prescriptions:
No Action
acetaminophen [Tylenol] 325 mg Tablet
650 mg PO Q6HPRN PRN (Reason: mild pain)
Theragen Tablet
1 tab PO DAILY
fexofenadine [Deja] 180 mg Tablet
180 mg PO DAILY
famotidine [Pepcid] 20 mg Tablet
20 mg PO BID
fluticasone propionate 1 SPRAY spray,suspension
2 spray intranasal DAILY
cholecalciferol (vitamin D3) [Vitamin D3] 25 mcg (1,000 unit) Tablet
25 mcg PO DAILY
Referrals:
Donny Goncalves MD [Family Provider, Internal Medicine]
Interventions
Interventions:
*Risk Screen - Suicide Last Done: 03/22/25 11:54
*General Assessment Last Done: 03/22/25 11:54
*Neglect/Abuse Screening Last Done: 03/22/25 11:54
*ED- Fall Risk Assessment Last Done: 03/22/25 13:09
*ED COVID-19 Vaccine History Last Done: 03/22/25 11:54
*ED Influenza Vaccine History Last Done: 03/22/25 11:54
ED- Cardiac Assessment Last Done: 03/22/25 13:09
ED- Neurological Assessment Last Done: 03/22/25 13:09
ED- Pulmonary Assessment Last Done: 03/22/25 13:09
Discharge Date and Time
Print Language: SPANISH
--- NOTE | 2025-03-22 18:53 | HPS.HSE ---
Addendum entered and electronically signed by Mildred Castorena MD 03/22/25 19:01:
Patient complained of chest pressure when she came into the emergency room. This is now resolved. EKG shows normal sinus rhythm. Troponin negative. Trend troponins.
Original Note:
Family Physician
-
Family Physician: Donny Goncalves
Chief Complaint
-
tingling
History of Present Illness
64-year-old female past medical history of hypertension, GERD, peptic ulcer, presenting with tingling of the left face, left neck pain and headache and bilateral blurry vision behind the left eye starting today. She has been having intermittent
headaches for the past few weeks. Patient has a history of hypertension and was started on losartan a few months ago but was having itching so losartan was stopped. She was seeing Dr. Streeter who recommended that she start amlodipine but this had
not been started yet because her blood pressure had been stable.
Patient denies any speech difficulty or swallowing dysfunction. She denies any vertigo, numbness or tingling over the rest of the body, focal weakness.
She denies smoking or alcohol drugs.
Medical History
Past Medical History
Past Medical History: Reports Other (hypertension, GERD, peptic ulcer,)
Past Surgical History: Reports Other (Cholecystectomy)
Social History
Tobacco: Non-smoker
Alcohol: None
Drug: None
Family History
Family History: Not pertinent
Allergies / Home Medications
Allergies reflects when Allergies were last updated in [employer].
Home Medications with original date entered in [employer]
Allergy/Medication List:
Allergies
Allergy/AdvReac Type Severity Reaction Status Date / Time
losartan Allergy Mild Itching Verified 03/22/25 11:56
Home Medications
acetaminophen 325 mg tablet (Tylenol) 650 mg PO Q6HPRN PRN mild pain 03/22/25
cholecalciferol (vitamin D3) 25 mcg (1,000 unit) tablet (Vitamin D3) 25 mcg PO DAILY Supplement 03/22/25
famotidine 20 mg tablet (Pepcid) 20 mg PO BID Gastrointestinal Issue 03/22/25
fexofenadine 180 mg tablet 180 mg PO DAILY Allergies 03/22/25
fluticasone propionate 50 mcg/actuation nasal spray,suspension 2 spray intranasal DAILY Allergies 03/22/25
therapeutic multivitamin 1 tab PO DAILY Supplement 03/22/25
Review of Systems
-
History Source: Patient
A 12 point ROS was completed and negative except as noted: Yes
Constitutional: Reports No Symptoms
EENT: Reports No Symptoms
Respiratory: Reports No Symptoms
Cardiac: Reports No Symptoms
Abdomen/GI: Reports No Symptoms
: Reports No Symptoms
Musculoskeletal: Reports No Symptoms
Skin: Reports No Symptoms
Neurological: Reports See HPI
Endocrine: Reports No Symptoms
Hematologic/Lymphatic: Reports No Symptoms
Psych: Reports No Symptoms
Physical Exam
Vital Signs
Vital Signs
Temp Pulse Resp BP Pulse Ox
98.3 F 56 17 163/70 99
03/22/25 11:54 03/22/25 18:00 03/22/25 18:00 03/22/25 18:00 03/22/25 18:30
Physical Exam
General: Well Developed, Well Nourished and No Apparent Distress
HEENT: NormoCephalic, Moist mucous membranes and Atraumatic
Respiratory: Clear
Cardiac: S1/S2 and Regular Rhythm; No Murmur or Rub
GI: Soft, Non Tender, Non Distended and Normal Bowel Sounds; No Organomegaly
Rectal: Deferred by Provider
Musculoskeletal: No Clubbing, No Cyanosis and No Edema
Skin: No Rash
Neuro: Nonfocal/grossly intact
Laboratory Results
-
03/22/25 12:01
03/22/25 12:01
Laboratory Results
Total Bilirubin 1.5 mg/dl (0.2-1.3) H 03/22/25 12:01
AST 40 U/L (14-36) H 03/22/25 12:01
ALT 50 U/L (0-35) H 03/22/25 12:01
Alkaline Phosphatase 86 U/L (38-126) 03/22/25 12:01
Troponin I < 0.012 ng/ml 03/22/25 13:54
Data Reviewed
-
Lab Data: Labs Reviewed by me
Old Records: Reviewed
Impression/Plan
-
IMPRESSION:
PLAN:
# Left facial numbness/neck pain/headache concerning for acute CVA secondary to uncontrolled hypertension
- CTA head and neck shows no acute intracranial abnormality
- Check A1c and lipid panel
- Aspirin and Plavix started
-Patient declining statin at this time
- Check MRI brain
- Neurology consulted
- Permissive hypertension until tomorrow morning
# Hypertension
-Blood pressure as high as 163/70
- Plan to start amlodipine tomorrow morning
# Mild transaminitis
- Continue to monitor
GERD/peptic ulcer
Full code
DVT prophylaxis�SCDs
Regular diet
[2025-03-22] MEDS: ASPIRIN 325 MG PO (18:59)
[2025-03-22] MEDS: PLAVIX 300 MG PO (18:59)
--- NOTE | 2025-03-22 21:30 | PTCARENOTE ---
Received patient from ED at 1999. Admitted with stroke-like symptoms. Patient reports her left face, arm and leg were numb however symptoms are now resolved. AAOx3, ambulatory. Denies pain. SB on telemetry in 50's. 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
aware via tigertext. +pulse, no edema, afebrile. Oriented to unit and call moyer. Plan for MRI brain tomorrow. Patient passed bedside swallow evaluation, diet placed. Continuing with plan of care.
[2025-03-22] MEDS: PEPCID 20 MG PO (21:55)
[2025-03-22 23:25] LABS: Troponin I < 0.012 ng/ml
[2025-03-23 01:15] VITALS: BP 170/101
[2025-03-23 02:38] VITALS: BP 124/73
[2025-03-23 05:31] LABS: Hematocrit 39.3 % (37.0-47.0); Hemoglobin 13.7 g/dL (12.0-16.0); Mean Corp Hgb Conc. 34.9 g/dL (33.0-37.0); Mean Corpuscular Volume 92.7 fL (81.0-99.0); Platelet Count 302 10^3/uL (130-400); Red Cell Dist. Width 12.8 % (11.5-14.5)
[2025-03-23 05:45] LABS: ALT (SGPT) 50 U/L (0-35); AST (SGOT) 33 U/L (14-36); Albumin 4.4 g/dl (3.5-5.0); Alkaline Phosphatase 86 U/L (38-126); Blood Urea Nitrogen 11 mg/dl (7-17); Calcium 9.9 mg/dl (8.4-10.2); Carbon Dioxide 26 mmol/L (22-30); Chloride 104 mmol/L (98-107); Estimated Creatinine Clearance 102 ml/min; Glucose 92 mg/dl (70-99); HDL Cholesterol 62 mg/dl; LDL Cholesterol, Calculated 90 mg/dl; Potassium 3.9 mmol/L (3.5-5.1); Sodium 137 mmol/L (135-145); Total Protein 7.4 g/dl (6.3-8.2); Very Low Density Lipoprotein 15 mg/dl (0-30); eGFR > 60.00
[2025-03-23 05:57] LABS: Troponin I 0.016 ng/ml
[2025-03-23 07:00] VITALS: BP 123/81
[2025-03-23] MEDS: PEPCID 20 MG PO (09:15)
[2025-03-23] MEDS: LOW STRENGTH ASPIRIN 81 MG PO (09:15)
[2025-03-23] MEDS: PLAVIX 75 MG PO (09:16)
--- NOTE | 2025-03-23 10:50 | PTOTSP ---
Speech Therapy Evaluation
Pt seen for bedside swallow assessment. With PO intake, pt demo adequate oral acceptance, mastication, ap transfer, and oral clearance. No overt s/sx of aspiration across all trials at bedside. No MRI evidence for acute infarct or intracranial
hemorrhage. Suspected CVA symptoms have subsided. Pt on room air and WBC WNL. Slightly increased risk of aspiration given history of GERD.
Recommend:�
1. IDDSI 7 regular solids and IDDSI 0 thin liquids
2. Medication as best tolerated
3. Standard aspiration precautions
4. RECYCLING CREW SUPERVISOR to s/o.
[2025-03-23 11:00] VITALS: BP 115/59
[2025-03-23 11:17] VITALS: BP 148/74; BP 158/75; PULSE 75; O2SAT 99
[2025-03-23] MEDS: TYLENOL 650 MG PO (11:22)
--- NOTE | 2025-03-23 11:45 | W.PN.HOSP.TC ---
Today's Communication/Plan
-
d/c
Assessment / Plan
Assessment / Plan
Gen: NAD, AAOx3.
Eyes: EOMI, PERRLA, no scleral icterus.
Neck: supple.
CV: RRR, +S1/S2, no m/r/g.
Resp: CTAB, no rales, wheezes, or rhonchi.
Abd: +BS, soft, NT, ND
Skin: No rashes.
Neuro: CN 2-12 intact, non-focal.
Psych: Normal mood and affect.
MRI brain: No MRI evidence for acute infarct or intracranial hemorrhage. Mild white matter disease in the frontal and parietal lobes.
CTA head/neck: No acute intracranial hemorrhage. The cervical carotid and vertebral arteries are patent without significant plaque, stenosis, occlusion, or dissection. No [place] of [place] region aneurysm or stenosis. No cerebral artery aneurysm,
significant plaque, stenosis, thrombus, or occlusion.
Hypertensive emergency:
-presented with Left facial numbness/neck pain/headache which, as per neuro, was likely a TIA due to hypertensive emergency
-imaging above, no CVA
-BP has improved
-currently on ASA, Plavix x 21 days, refused statin
Chest pressure:
-resolved
-trops NEG x 3
-ECG without acute ischemic changes
-tele with SR
Other problems:
Obesity due to excess calories: Affects all aspects of care. Encourage weight loss.
Mild transaminitis
GERD/PUD: cont Pepcid
FULL/SCDs
Medically cleared for d/c.
Total time spent on d/c = 33 min. This included today's physical exam, progress note, review of laboratory and diagnostic data, preparation of discharge documents and prescriptions, and discussions about the pt's hospital course and discharge plan
with the patient and other medical oncologist involved in the patient's care.
Anticipated Discharge: Today
Subjective/Interval History
-
Date of Service: March 23, 2025
No new complaints.
Objective Data
-
Labs:
Laboratory Results
03/23/25
05:05
WBC 8.2
Hgb 13.7
Hct 39.3
Plt Count 302
Sodium 137
Potassium 3.9
Chloride 104
Carbon Dioxide 26
BUN 11
Creatinine 0.6
Glucose 92
Calcium 9.9
Total Bilirubin 2.1 H
AST 33
ALT 50 H
Alkaline Phosphatase 86
Vital Signs:
Vital Signs
Temp Pulse Resp BP Pulse Ox
98.0 F 75 18 115/59 98
03/23/25 11:00 03/23/25 11:00 03/23/25 11:00 03/23/25 11:00 03/23/25 11:00
I&O
03/22/25 03/23/25 03/24/25
06:59 06:59 06:59
Intake Total 120 / 120
Balance 120 / 120
--- NOTE | 2025-03-23 11:49 | CON.NEURO4 ---
Consultation - Neurology 4
-
CONSULTING PHYSICIAN: Dr. Riley Holloway
REFERRING PHYSICIAN: Dr. Mildred Castorena
DICTATED BY: Dr. Riley Holloway
DATE/TIME OF REQUEST: 03/23/2025
DATE/TIME OF CONSULTATION: 03/23/2025
Reason for Consultation: Tingling of the left side of face, headache and blurry vision.
ASSESSMENT AND PLAN:
The patient says that the numbness and tingling of the left side has almost resolved. She denies any history of focal weakness, speech difficulty or any difficulty in walking. She says that her blood pressure prior to admission was 180/110. She
has been having intermittent headaches for the past few weeks. Patient has a history of hypertension and was started on losartan a few months ago but she stopped taking it as she was having itching. She was not on any antihypertensive medication
prior to admission.
. MRI of the brain does not show evidence for acute infarct or intracranial hemorrhage.
. CT of the head does not show any intracranial abnormality.
. CTA of the head and neck does not show a large vessel occlusion.
The patient appears to have had a transient ischemic attack which was likely secondary to uncontrolled hypertension. The neurologic examination is normal and she only has a mild subjective sensation of numbness and tingling in the left side of face
and left side of the neck. MRI of the brain is negative for any acute infarct. The patient was not a candidate for TNK as she was outside the time window. She is not a candidate for IAT as a CTA of the head and neck does not show a large vessel
occlusion.
. Aspirin 81 mg daily and Plavix 75 mg daily for 21 days and then she will stop Plavix and continue with aspirin.
. Pepcid 20 mg twice a day
. LDL goal of < 70.
. Follow-up with neurology in 4 to 6 weeks as outpatient.
. Will sign off. Please call if you have any question.
History of Present Illness:
The patient is a 64 years old female, with a past medical history of hypertension, GERD, peptic ulcer, presenting with tingling of the left side of face, left-sided neck pain, headache and bilateral blurry vision. She has been having intermittent
headaches for the past few weeks. Patient has a history of hypertension and was started on losartan a few months ago but she stopped taking it as she was having itching. She was seeing Dr. Streeter who recommended that she start amlodipine but
this had not been started yet because her blood pressure had been stable. She reports that her blood pressure was 180/110 prior to admission. At the time when the patient was seen today she denied any other symptoms except mild numbness and
tingling of the left side of the face and left side of the neck, however, she says that the numbness and tingling has decreased significantly since admission.
Patient denies any speech difficulty or swallowing dysfunction. She denies any vertigo.
Past Medical History:
Hypertension, GERD, peptic ulcer,
Review of Systems:
The 10 point review systems are negative aside from what is given the above history of present illness.
Neurologic Examination:
Alert and oriented x 3,
Speech is clear,
The cranial nerves II to XII are grossly intact,
The visual gould are grossly full to confrontation,
The motor strength is grossly 5/5 bilaterally upper and lower extremities,
The sensations are grossly intact bilaterally,
The cerebellar examination does not show limb ataxia.
Vital Signs and Labs
-
Vital Signs and Labs:
Vital Signs
Temp Pulse Resp BP Pulse Ox
36.7 C 75 18 115/59 98
03/23/25 11:00 03/23/25 11:00 03/23/25 11:00 03/23/25 11:00 03/23/25 11:00
Lab Results
03/23/25 05:05
03/23/25 05:05
Sodium 137 mmol/L (135-145) 03/23/25 05:05
Potassium 3.9 mmol/L (3.5-5.1) 03/23/25 05:05
BUN 11 mg/dl (7-17) 03/23/25 05:05
Glucose 92 mg/dl (70-99) 03/23/25 05:05
Calcium 9.9 mg/dl (8.4-10.2) 03/23/25 05:05
LDL Cholesterol, Calc 90 mg/dl 03/23/25 05:05
Medications
-
Home Medications
�Medication �Instructions �Recorded
acetaminophen 325 mg tablet 650 mg PO Q6HPRN PRN mild pain 03/22/25
(Tylenol)
cholecalciferol (vitamin D3) 25 25 mcg PO DAILY Supplement 03/22/25
mcg (1,000 unit) tablet (Vitamin
D3)
famotidine 20 mg tablet (Pepcid) 20 mg PO BID Gastrointestinal Issue 03/22/25
fexofenadine 180 mg tablet 180 mg PO DAILY Allergies 03/22/25
fluticasone propionate 50 2 spray intranasal DAILY Allergies 03/22/25
mcg/actuation nasal
spray,suspension
therapeutic multivitamin 1 tab PO DAILY Supplement 03/22/25
aspirin 81 mg chewable tablet 81 mg PO DAILY #0 tabs 03/23/25
atorvastatin 40 mg tablet (Lipitor) 40 mg PO HS #30 tabs 03/23/25
clopidogrel 75 mg tablet 75 mg PO DAILY #21 tabs 03/23/25
[2025-03-23 12:13] LABS: Glycohemoglobin (HgbA1c) 5.5 % (4.0-5.9)
--- NOTE | 2025-03-23 12:43 | W.DCSUMMARY ---
Discharge Summary
Discharge Data
Date of Admission: 03/22/25
Date of Discharge: 03/23/25
-
Pending Results: No
Hospital Course
Primary diagnoses:
Transient ischemic attack due to hypertensive emergency
Chest pressure
Secondary diagnoses:
Obesity due to excess calories
Mild transaminitis
Gastroesophageal reflux disease
Peptic ulcer disease
Consultants:
Neurology
Imaging:
MRI brain: No MRI evidence for acute infarct or intracranial hemorrhage. Mild white matter disease in the frontal and parietal lobes.
CTA head/neck: No acute intracranial hemorrhage. The cervical carotid and vertebral arteries are patent without significant plaque, stenosis, occlusion, or dissection. No [place] region aneurysm or stenosis. No cerebral artery aneurysm,
significant plaque, stenosis, thrombus, or occlusion.
64-year-old female who presented yesterday with a chief complaint of left facial paresthesias and headache as outlined in the H&P done on admission. Hospital course by problem list:
Hypertensive emergency: The patient presented with Left facial numbness/neck pain/headache. Her blood pressure was elevated but improved on its own. Imaging above. She was placed on aspirin and Plavix. She received few statin. She was seen by
neurology and Dr. Holloway felt the patient's presenting symptoms were due to TIA due to hypertensive emergency. Patient is being discharged in medically stable condition at this time. Prescriptions were sent for Plavix and statin although the patient
stated she may refuse these medications.
Chest pressure: This resolved. Her troponins were negative x 3. ECG was without acute ischemic changes. Telemetry showed sinus rhythm.
Discharge Plan
-
Patient Disposition: Home (Routine Discharge)
Discharge Diagnosis/Procedures: Transient ischemic attack
Condition: Good
Diet: Low Cholesterol and Low Sodium
Activity: No restrictions
Driving Restrictions: As prior to admission
Bathing Restrictions: None
Referrals:
Donny Goncalves MD [Family Provider, Internal Medicine] - in less than 1 week
Prescriptions:
New
clopidogrel 75 mg Tablet
75 mg PO DAILY Qty: 21 0RF
aspirin 81 mg Tablet,Chewable
81 mg PO DAILY Qty: 0 0RF
atorvastatin [Lipitor] 40 mg tablet
40 mg PO HS Qty: 30 0RF
Continued
acetaminophen [Tylenol] 325 mg Tablet
650 mg PO Q6HPRN PRN (Reason: mild pain)
therapeutic multivitamin Tablet
1 tab PO DAILY
fexofenadine 180 mg Tablet
180 mg PO DAILY
famotidine [Pepcid] 20 mg Tablet
20 mg PO BID
fluticasone propionate 1 SPRAY spray,suspension
2 spray intranasal DAILY
cholecalciferol (vitamin D3) [Vitamin D3] 25 mcg (1,000 unit) Tablet
25 mcg PO DAILY
Discharge Orders:
Discharge Patient (As Directed); Ordered 03/23/25
Ordered By: Adolph Farrell
Discharge Date and Time
Print Language: KYRGYZ
--- NOTE | 2025-03-23 14:19 | PTCARENOTE ---
pt medicated with Tylenol for c/o b/l temporal headache with good relief, tolerating diet, independent, vss, will continue to monitor.
--- NOTE | 2025-03-23 16:33 | CM ---
Pt s Ed drove her home. Pt is independent and did not requested VN. Pt left before observation letter could be explained.
Phar GILBERT stewart
PCP Dr Goncalves
[facility] Home no needs
== END 2025-03-23 14:19 | disposition home or self-care (01) ==
LOC: 3 WEST ACU 19:22
PROVIDERS: Emergency Medicine; Physician Assistant; ADMITTING PHYSICIAN Hospitalist; ATTENDING PHYSICIAN Internal Medicine; CONSULT PHYSICIAN Psychiatry & Neurology Neurology; EMERGENCY PHYSICIAN Emergency Medicine; FAMILY PHYSICIAN Internal Medicine
DX: G45.9 Transient cerebral ischemic attack, unspecified (principal); I16.1 Hypertensive emergency; R07.89 Other chest pain; I10 Essential (primary) hypertension; R74.01 Elevation of levels of liver transaminase levels; K21.9 Gastro-esophageal reflux disease without esophagitis; K27.9 Peptic ulcer, site unspecified, unspecified as acute or chronic, without hemorrhage or perforation; E66.09 Other obesity due to excess calories; Z68.32 Body mass index [BMI] 32.0-32.9, adult; Z79.02 Long term (current) use of antithrombotics/antiplatelets; Z79.899 Other long term (current) drug therapy; Z79.82 Long term (current) use of aspirin
CPT/HCPCS: 70496; 70498; 70551; 80053; 80061; 83036; 84484; 85025; 85027; 92610; 93005; 96374; 97162; 99285; G0378; Q9967